=== PATIENT | male | born 2000 | race Hispanic/Latino ===

== ENCOUNTER 2023-12-20 12:07 | Emergency (ER) | payer BC ==
[2023-12-20 13:04] LABS: Absolute Eosinophils 0.5 K/uL (0-0.5); Absolute Lymphocytes (CBC) 2.7 K/uL (0.7-4.9); Absolute Monocytes 0.6 K/uL (0.1-1.3); Absolute Neutrophil 3.1 K/uL (1.8-8.0); Basophils % 0.3 % (0-1.3); Eosinophils % 7.4 % (0-4.4); Hematocrit 51.2 % (39.6-49.0); Hemoglobin 17.2 g/dL (13.6-17.9); Lymphocytes % 38.7 % (15.3-44.8); MCH 29.1 pg (27.0-35.0); MCHC 33.6 g/dL (32.0-36.0); MCV 86.7 fL (80-100); MPV 8.8 fL (7.6-11.3); Neutrophils % 44.6 % (41.7-73.7); Nucleated Red Blood Cells % 0.3 % (0-0); Platelets 226 thou/uL (152-406); RBC Red Blood Cell Count 5.91 M/uL (4.33-5.43); Red Cell Distribution Width 13.4 % (12.1-15.2)
[2023-12-20 13:22] LABS: Anion Gap 4.8 mEq/L (5.0-15.0); Potassium 3.8 mEq/L (3.5-5.1); Troponin High Sensitivity 3.4 pg/mL (<58.9)
--- NOTE | 2023-12-20 15:23 | RAD REPORT ---
EXAM DESCRIPTION: Mack Single View12/20/2023 1:42 pm CLINICAL HISTORY: CHEST PRESSURE COMPARISON: No comparisons TECHNIQUE: Portable AP view of the chest. FINDINGS: Medial right infrahilar hazy airspace opacity. No pneumothorax or effusion. The cardiomed iastinal contours are unremarkable. IMPRESSION: Mild right infrahilar hazy airspace opacity, could reflect atelectasis or early airspace disease.
--- NOTE | 2023-12-20 15:35 | ER ---
Nurse's Notes [facility] Name: Tyron Dempsey Age: 23 yrs Sex: Male : 2000 Arrival Date: 12/20/2023 Time: 12:07 Bed 14 Private MD: Diagnosis: Chest pain, unspecified Presentation: 12/19 12:12 Chief complaint: Patient states: Chest pain and left arm tingling that began yesterday. aa5 Pt states "I thought it was a pulled muscle but then my arm started tingling". 12:12 Coronavirus screen: At this time, the client does not indicate any symptoms associated aa5 with coronavirus-19. Ebola Screen: Patient denies travel to an Ebola-affected area in the 21 days before illness onset. Initial Sepsis Screen: Does the patient meet any 2 criteria? No. Patient's initial sepsis screen is negative. Does the patient have a suspected source of infection? No. Patient's initial sepsis screen is negative. Risk Assessment: Do you want to hurt yourself or someone else? Patient reports no desire to harm self or others. Onset of symptoms was December 2023. 12:12 Acuity: KAILYN 2 aa5 12:12 Method Of Arrival: Ambulatory aa5 Historical: - Allergies: 12:22 IV contrast; aa5 - PMHx: 12:22 None; aa5 - Immunization history:: Adult Immunizations unknown. - Infectious Disease History:: Denies. - Social history:: Smoking status: Patient denies any tobacco usage or history of. Screenin:47 [facility] ED Fall Risk Assessment (Adult) History of falling in the last 3 months, kc6 including since admission No falls in past 3 months (0 pts) Confusion or Disorientation No (0 pts) Intoxicated or Sedated No (0 pts) Impaired Gait No (0 pts) Mobility Assist Device Used No (0 pt) Altered Elimination No (0 pt) Score/Fall Risk Level 0 - 2 = Low Risk. Abuse screen: Denies threats or abuse. Denies injuries from another. Nutritional screening: No deficits noted. Tuberculosis screening: No symptoms or risk factors identified. Assessment: 12:30 General: Appears in no apparent distress. comfortable, well groomed, well developed, kc6 Behavior is calm, cooperative, appropriate for age. Pain: Complains of pain in anterior aspect of left upper chest and left arm Pain radiates to left arm Quality of pain is described as heavy, pressure, Pain began 1 day ago. Is continuous. Neuro: Level of Consciousness is awake, alert, obeys commands, Oriented to person, place, time, situation, Appropriate for age. Cardiovascular: Reports chest pain, Denies shortness of breath, Heart tones S1 S2 present Capillary refill < 3 seconds Rhythm is sinus rhythm with 1st degree heart block. Respiratory: Airway is patent Trachea midline Respiratory effort is even, unlabored, Respiratory pattern is regular, symmetrical. GI: No signs and/or symptoms were reported involving the gastrointestinal system. : No signs and/or symptoms were reported regarding the genitourinary system. EENT: No signs and/or symptoms were reported regarding the EENT system. Derm: No signs and/or symptoms reported regarding the dermatologic system. Skin is intact, is healthy with good turgor, Skin is pink, warm \\T\\ dry. Musculoskeletal: No signs and/or symptoms reported regarding the musculoskeletal system. Circulation, motion, and sensation intact. Capillary refill < 3 seconds, Range of motion: intact in all extremities. 14:28 Reassessment: Patient appears in no apparent distress at this time. No changes from kc6 previously documented assessment. Patient and/or family updated on plan of care and expected duration. Pain level reassessed. Patient is alert, oriented x 3, equal unlabored respirations, skin warm/dry/pink. 15:28 Reassessment: Patient appears in no apparent distress at this time. No changes from kc6 previously documented assessment. Patient and/or family updated on plan of care and expected duration. Pain level reassessed. Patient is alert, oriented x 3, equal unlabored respirations, skin warm/dry/pink. Vital Signs: 12:12 BP 144 / 70; Pulse 94; Resp 20 S; Temp 98(TE); Pulse Ox 99% on R/A; Weight 100.7 kg aa5 (R); Height 5 ft. 9 in. (R); 14:28 BP 113 / 62; Pulse 74; Resp 15 S; Pulse Ox 98% on R/A; kc6 15:28 BP 115 / 72; Pulse 79; Resp 16 S; Pulse Ox 99% on R/A; kc6 12:12 Body Mass Index 32.78 (100.70 kg, 175.26 cm) aa5 ED Course: 12:12 Patient arrived in ED. aa5 12:12 Alicia Mcclain FNP-C [facility]. kb 12:12 Bharathi Regan MD is Attending Physician. kb 12:12 Arm band placed on. aa5 12:21 Triage completed. aa5 12:28 Brittney Montgomery, RN is Primary Nurse. [facility] 12:47 Patient has correct armband on for positive identification. Placed in gown. Bed in low kc6 position. Call light in reach. Side rails up X 1. reports analyst on. Pulse ox on. NIBP on. Pillow given. 12:47 Inserted saline lock: 20 gauge in right antecubital area, using aseptic technique. kc6 Blood collected. Flushed with 10 mL NS. 13:43 Chest Single View In Process Unspecified. EDMS 15:43 No provider procedures requiring assistance completed. IV discontinued, intact, kc6 bleeding controlled, No redness/swelling at site. Pressure dressing applied. Administered Medications: No medications were administered Medication: 15:44 VIS not applicable for this client. kc6 Outcome: 15:35 Discharge ordered by . kb 15:43 Discharged to home ambulatory, kc6 15:43 Condition: good 15:43 Discharge instructions given to patient, Instructed on discharge instructions, follow up and referral plans. Demonstrated understanding of instructions, follow-up care, 15:44 Patient left the ED. kc6 Signatures: Dispatcher [employer] EDNE Alicia Mcclain FNP-C FNP-Ckb Calderon, Audri, RN RN aa5 Alexa Mancini RN RN [facility] Brittney Montgomery, RN RN nj1
--- NOTE | 2023-12-20 15:35 | EDPHYS ---
Physician Documentation [facility] Name: Tyron Dempsey Age: 23 yrs Sex: Male : 2000 Arrival Date: 12/20/2023 Time: 12:07 Bed 14 Private MD: ED Physician Bharathi Regan HPI: 12/19 12:52 This 23 yrs old Male presents to ER via Ambulatory with complaints of Chest kb Pressure - arm tingling. 12:52 Pt is a 23 year old male who presents for chest pressure and tingling to left arm that kb started yesterday. States he still had the symptoms when he woke up today so he decided to come in for evaluation. Denies shortness of breath, n/v/d. . Historical: - Allergies: 12:22 IV contrast; aa5 - PMHx: 12:22 None; aa5 - Immunization history:: Adult Immunizations unknown. - Infectious Disease History:: Denies. - Social history:: Smoking status: Patient denies any tobacco usage or history of. ROS: 12:43 Constitutional: As per HPI kb Exam: 12:43 Constitutional: This is a well developed, well nourished patient who is awake, alert, kb and in no acute distress. Head/Face: Normocephalic, atraumatic. ENT: Moist Mucous membranes Cardiovascular: Regular rate Respiratory: Respirations even and unlabored. No increased work of breathing. Talking in full sentences Abdomen/GI: Soft, non-tender. No distention Skin: Warm, dry with normal turgor. Normal color. MS/ Extremity: Pulses equal, no cyanosis. Neurovascular intact. Full, normal range of motion. Neuro: Awake and alert, GCS 15, oriented to person, place, time, and situation. Moves all extremities. Normal gait. 12:43 ECG was reviewed by the Attending Physician. Vital Signs: 12:12 BP 144 / 70; Pulse 94; Resp 20 S; Temp 98(TE); Pulse Ox 99% on R/A; Weight 100.7 kg aa5 (R); Height 5 ft. 9 in. (R); 14:28 BP 113 / 62; Pulse 74; Resp 15 S; Pulse Ox 98% on R/A; kc6 15:28 BP 115 / 72; Pulse 79; Resp 16 S; Pulse Ox 99% on R/A; kc6 12:12 Body Mass Index 32.78 (100.70 kg, 175.26 cm) aa5 MDM: 12:12 Patient medically screened. kb 12:52 Data reviewed: vital signs, nurses notes. kb 15:33 Differential diagnosis: abnormal ekg, PA, musculoskeletal pain, PE, myalgia. I kb considered the following discharge prescriptions or medication management in the emergency department antibiotics considered but pt has no fever, chills, cough, congestion, shortness of breath to indicate infectious process. Test considered but Not performed: CT: CT PE considered but PERC negative. Scoring Tools PERC Rule for PE Age >/= 50 No HR >/= 100 No O2 Sat Room Air < 95% No Unilateral leg swelling No Hemoptysis No Recent surgery or trauma </= 4 wks ago requiring treatment with general anesthesia No (0 pt) Prior PE or DVT No Hormone use (Oral contraceptives, hormone replacement or estrogenic hormones use in males or female patients No. Counseling: I had a detailed discussion with the patient and/or guardian regarding the historical points, exam findings, and any diagnostic results supporting the discharge/admit diagnosis, lab results, radiology results, the need for outpatient follow up, a family practitioner, to return to the emergency department if symptoms worsen or persist or if there are any questions or concerns that arise at home. 12/19 12:52 Order name: Basic Metabolic Panel; Complete Time: 13:23 EDAK 12/19 12:52 Order name: Troponin High Sensitivity; Complete Time: 13:23 EDAK 12/19 12:52 Order name: CBC with Automated Diff; Complete Time: 13:11 EDAK 12/19 13:01 Order name: Chest Single View; Complete Time: 15:29 EDAK 12/19 12:20 Order name: EKG; Complete Time: 15:52 kb 12/19 12:20 Order name: Cardiac monitoring; Complete Time: 12:47 kb 12/19 12:20 Order name: EKG - Nurse/Tech; Complete Time: 12:47 kb 12/19 12:20 Order name: IV Saline Lock; Complete Time: 12:47 kb 12/19 12:20 Order name: Labs collected and sent; Complete Time: 12:47 kb 12/19 12:20 Order name: O2 Per Protocol; Complete Time: 12:47 kb 12/19 12:20 Order name: O2 Sat Monitoring; Complete Time: 12:47 kb EC:43 Rate is 75 beats/min. Rhythm is regular. QRS [place] is Normal. WA interval is prolonged kb at 226 msec. QRS interval is normal at 100 msec. QT interval is normal at 397 msec. Administered Medications: No medications were administered Disposition Summary: 12/20/23 15:35 Discharge Ordered Notes: Location: Home kb Condition: Stable kb Diagnosis - Chest pain, unspecified kb Followup: kb - With: Emergency Department - When: As needed - Reason: Worsening of condition Followup: kb - With: Private Physician - When: 2 - 3 days - Reason: Recheck today's complaints, Continuance of care, Re-evaluation by your physician Discharge Instructions: - Discharge Summary Sheet kb - Nonspecific Chest Pain, Adult, [id number] kb Forms: - Medication Reconciliation Form kb - Antibiotic Education kb - Prescription Opioid Use kb - Patient Portal Instructions kb - Leadership Thank You Letter kb Addendum: 12/21/2023 17:20 I was immediately available for consultation during this patient's visit. I did not e c2 personally see the patient or discuss the patient with the BYRON. . Signatures: Dispatcher [employer] Alicia Pritchard, TIMBER MANAGEMENT SPECIALIST-C TIMBER MANAGEMENT SPECIALIST-Marisela Dick, RN RN aa5 Bharathi Regan MD MD ec2
[2023-12-20 17:33] VITALS: TEMP 98
[2023-12-20 17:35] VITALS: BP 115/72; O2SAT 99
--- NOTE | 2023-12-21 16:59 | EKG ---
Test Date: 2023-12-20 Test Time: 12:36:52 C.O.D. Clerk: LOLLY MEASUREMENT RESULTS: Intervals: Rate: 75 SC: 226 QRSD: 100 QT: 356 QTc: 397 [place]: P: 48 SC: 226 QRS: 87 T: 47 INTERPRETIVE STATEMENTS: Sinus rhythm with 1st degree AV block Nonspecific ST abnormality Abnormal ECG No previous ECG available for comparison Electronically Signed On 12-21-23 16:57:10 CDT by John Burgos
== END 2023-12-20 15:44 | disposition home or self-care (01) ==
LOC: ER 12:07
DX: R07.9 Chest pain, unspecified (principal)
CPT/HCPCS: 36415; 71045; 80048; 84484; 85025; 93005; 99284

== ENCOUNTER 2025-03-08 02:28 | Emergency (ER) | payer SELFPAY ==
[2025-03-08] MEDS ORDERED: NA CHLORIDE 0.9% 1,000 ML ONE (02:59)
--- NOTE | 2025-03-08 08:14 | ER ---
Nurse's Notes [facility] Name: Tyron Dempsey Age: 24 yrs Sex: Male : 2000 Arrival Date: 03/08/2025 Time: 02:28 Bed 15 Private MD: Diagnosis: Acute upper abdominal pain, acute gastritis Presentation: 03/08 02:47 Chief complaint: Patient states: I woke up about an hour ago with severe stomach kd3 cramping and nausea. I never threw up but now it just feels like i have tightness in my stomach and i do not feel good. I also have not had any diarrhea. Coronavirus screen: Vaccine status: Patient reports receiving the 2nd dose of the covid vaccine. Ebola Screen: No symptoms or risks identified at this time. Initial Sepsis Screen: Does the patient meet any 2 criteria? No. Patient's initial sepsis screen is negative. Does the patient have a suspected source of infection? No. Patient's initial sepsis screen is negative. Risk Assessment: Do you want to hurt yourself or someone else? Patient reports no desire to harm self or others. Onset of symptoms was March 08, 2025. 02:47 Method Of Arrival: Ambulatory kd3 02:47 Acuity: KAILYN 3 kd3 Triage Assessment: 02:49 General: Appears in no apparent distress. Behavior is calm, cooperative. Pain: kd3 Complains of pain in abdomen. GI: Abdomen is non-distended. Historical: - Allergies: 02:49 IV contrast; kd3 - PMHx: 02:49 Asthma; kd3 - Immunization history:: Adult Immunizations up to date. - Infectious Disease History:: Denies. - Social history:: Smoking status: Patient denies any tobacco usage or history of. - Family history:: not pertinent. Screenin:54 [facility] ED Fall Risk Assessment (Adult) History of falling in the last 3 months, nh2 including since admission No falls in past 3 months (0 pts) Confusion or Disorientation No (0 pts) Intoxicated or Sedated No (0 pts) Impaired Gait No (0 pts) Mobility Assist Device Used No (0 pt) Altered Elimination No (0 pt) Score/Fall Risk Level 0 - 2 = Low Risk Oriented to surroundings, Maintained a safe environment, Educated pt \T\ family on fall prevention, incl call for assistance when getting out of bed, Assessed \T\ reinforced patient's understanding of fall precautions. Abuse screen: Denies threats or abuse. Denies injuries from another. Nutritional screening: No deficits noted. Tuberculosis screening: No symptoms or risk factors identified. Assessment: 02:54 General: Appears uncomfortable, Behavior is cooperative, appropriate for age, restless. nh2 Pain: Complains of pain in epigastric region Pain does not radiate. Pain currently is 3 out of 10 on a pain scale. at worst was 8 out of 10 on a pain scale. Quality of pain is described as aching, Pain began this morning at 1000. Neuro: Level of Consciousness is awake, alert, obeys commands, Oriented to person, place, time, situation, Appropriate for age [place] are equal bilaterally Denies dizziness, headache. Cardiovascular: Denies chest pain, Patient's skin is warm and dry. Respiratory: Respiratory effort is even, unlabored. GI: Bowel sounds present X 4 quads. Abd is soft and non tender X 4 quads. Reports cramping, nausea, Patient currently denies diarrhea. : No signs and/or symptoms were reported regarding the genitourinary system. Denies burning with urination. EENT: No signs and/or symptoms were reported regarding the EENT system. Derm: Skin is pink, warm \T\ dry. Musculoskeletal: Circulation, motion, and sensation intact. Range of motion: intact in all extremities. 03:18 Reassessment: pt transferred to CT via wheelchair. nh2 03:35 Reassessment: pt back from CT. reconnected to monitor. denies needs or concerns, call nh2 light placed within reach. 04:00 Reassessment: Patient and/or family updated on plan of care and expected duration. Pain nh2 level reassessed. Patient is alert, oriented x 3, equal unlabored respirations, skin warm/dry/pink. 05:00 Reassessment: Patient and/or family updated on plan of care and expected duration. Pain nh2 level reassessed. Patient is alert, oriented x 3, equal unlabored respirations, skin warm/dry/pink. Patient states feeling better. 06:00 Reassessment: Patient and/or family updated on plan of care and expected duration. Pain nh2 level reassessed. Patient is alert, oriented x 3, equal unlabored respirations, skin warm/dry/pink. Patient states symptoms have improved. Vital Signs: 02:47 BP 121 / 65; Pulse 77; Resp 16; Temp 98.4(O); Pulse Ox 99% on R/A; Weight 72.57 kg; kd3 Height 5 ft. 9 in. ; Pain 3/10; 03:16 BP 108 / 75; Pulse 79; Resp 18; Pulse Ox 100% on R/A; nh2 04:15 BP 110 / 54; Pulse 80; Resp 16; Pulse Ox 100% on R/A; nh2 04:31 BP 104 / 60; Pulse 75; Resp 17; Pulse Ox 100% on R/A; nh2 05:27 BP 110 / 57; Pulse 80; Resp 19; Pulse Ox 100% on R/A; nh2 06:01 BP 105 / 61; Pulse 74; Resp 17; Pulse Ox 98% on R/A; nh2 02:47 Body Mass Index 23.63 (72.57 kg, 175.26 cm) kd3 02:47 Pain Scale: Adult kd3 Zain Coma Score: 03:12 Eye Response: spontaneous(4). Motor Response: obeys commands(6). Verbal Response: sp4 oriented(5). Total: 15. ED Course: 02:37 Patient arrived in ED. gm2 02:47 Violet Ace, RN is Primary Nurse. kd3 02:49 Triage completed. kd3 02:49 Arm band placed on right wrist. kd3 02:54 Patient has correct armband on for positive identification. Bed in low position. Call nh2 light in reach. Side rails up X 1. Provided Education on: using call light for assistance. 02:54 No provider procedures requiring assistance completed. Inserted saline lock: 20 gauge nh2 in right antecubital area, using aseptic technique. Blood collected. Flushed with 10 mL NS. 02:55 Kal Hamilton MD is Attending Physician. sp4 02:58 Door closed. Noise minimized. Warm blanket given. Pillow given. nh2 06:20 IV discontinued, intact, bleeding controlled, No redness/swelling at site. Pressure nh2 dressing applied. Administered Medications: 03:15 Drug: NS 0.9% IV 1000 ml IV at 1000 ml once; to be given as a bolus over 60 minutes nh2 Route: IV; Rate: 1000 ml; Site: right antecubital; 04:10 Follow up: IV Status: Completed infusion; IV Intake: 1000ml nh2 Medication: 02:54 VIS not applicable for this client. nh2 Intake: 04:10 IV: 1000ml; Total: 1000ml. nh2 Outcome: 06:13 Discharge ordered by . micaela 06:20 Discharged to home ambulatory, nh2 06:20 Condition: stable 06:20 Discharge instructions given to patient, Instructed on discharge instructions, follow up and referral plans. Demonstrated understanding of instructions, follow-up care, 06:29 Patient left the ED. nh2 Signatures: Violet Ace, RN RN kd3 Kal Hamilton MD MD sp4 Pricila Simpson 2 Vance Peralta Jr, RN RN nh2
--- NOTE | 2025-03-08 08:14 | EDPHYS ---
Physician Documentation [facility] Name: Tyron Dempsey Age: 24 yrs Sex: Male : 2000 Arrival Date: 03/08/2025 Time: 02:28 Bed 15 Private MD: ED Physician Kal Hamilton HPI: 03/08 02:55 This 24 yrs old Male presents to ER via Ambulatory with complaints of sp4 Abdominal Pain, Abdominal Cramping, Nausea. 03:12 24-year-old male presents with acute onset upper abdominal pain associated with nausea sp4 and diaphoresis. Initially 7 out of 10 on a scale. On presentation to review the ER pain is 3 out of 10. Denied any previous medical problems or abdominal surgery. Historical: - Allergies: 02:49 IV contrast; kd3 - PMHx: 02:49 Asthma; kd3 - Immunization history:: Adult Immunizations up to date. - Infectious Disease History:: Denies. - Social history:: Smoking status: Patient denies any tobacco usage or history of. - Family history:: not pertinent. ROS: 03:12 Constitutional: Negative for fever, chills, and weight loss, positive upper abdominal sp4 pain positive diaphoresis positive nausea 03:12 All other systems are negative, Exam: 03:12 Constitutional: This is a well developed, well nourished patient who is awake, alert, sp4 and in no acute distress. Head/Face: Normocephalic, atraumatic. Eyes: Pupils equal round and reactive to light, extra-ocular motions intact. Lids and lashes normal. Conjunctiva and sclera are not injected. Cornea within normal limits. Periorbital areas with no swelling, redness, or edema. ENT: Nares patent. No nasal discharge, no septal abnormalities noted. Tympanic membranes are normal and external auditory canals are clear. Oropharynx with no redness, swelling, or masses, exudates, or evidence of obstruction, uvula midline. Mucous membranes moist. Neck: Trachea midline, no thyromegaly or masses palpated, and no cervical lymphadenopathy. Supple, full range of motion without nuchal rigidity, or vertebral point tenderness. Chest/axilla: Normal chest wall appearance and motion. Nontender with no deformity. No lesions are appreciated. Cardiovascular: Regular rate and rhythm with a normal S1 and S2. No gallops, murmurs, or rubs. No pulse deficits. Respiratory: Lungs have equal breath sounds bilaterally, clear to auscultation and percussion. No rales, rhonchi or wheezes noted. No increased work of breathing, no retractions or nasal flaring. Abdomen/GI: Soft, with normal bowel sounds. No distension or tympany. No guarding or rebound. No evidence of tenderness throughout. Back: No spinal tenderness. No costovertebral tenderness. Skin: Warm, dry with normal turgor. Normal color with no rashes, no lesions, and no evidence of cellulitis. MS/ Extremity: Pulses equal, no cyanosis. Neurovascular intact. Full, normal range of motion. Neuro: Awake and alert, GCS 15, oriented to person, place, time, and situation. Cranial nerves II-XII grossly intact. Motor strength 5/5 in all extremities. Sensory grossly intact. Psych: Awake, alert, with orientation to person, place and time. Behavior, mood, and affect are within normal limits 05:59 ECG was reviewed by the Attending Physician. EKG at 0 530 normal sinus rhythm, rate sp4 75, normal EKG Vital Signs: 02:47 BP 121 / 65; Pulse 77; Resp 16; Temp 98.4(O); Pulse Ox 99% on R/A; Weight 72.57 kg; kd3 Height 5 ft. 9 in. ; Pain 3/10; 03:16 BP 108 / 75; Pulse 79; Resp 18; Pulse Ox 100% on R/A; nh2 04:15 BP 110 / 54; Pulse 80; Resp 16; Pulse Ox 100% on R/A; nh2 04:31 BP 104 / 60; Pulse 75; Resp 17; Pulse Ox 100% on R/A; nh2 05:27 BP 110 / 57; Pulse 80; Resp 19; Pulse Ox 100% on R/A; nh2 06:01 BP 105 / 61; Pulse 74; Resp 17; Pulse Ox 98% on R/A; nh2 02:47 Body Mass Index 23.63 (72.57 kg, 175.26 cm) kd3 02:47 Pain Scale: Adult kd3 [place] Coma Score: 03:12 Eye Response: spontaneous(4). Motor Response: obeys commands(6). Verbal Response: sp4 oriented(5). Total: 15. MDM: 03:04 Medical Screening Exam initiated sp4 04:09 Differential diagnosis: Cholecystitis, pancreatitis, gastritis. Data reviewed: vital sp4 signs, nurses notes. ED course: Urinalysis today unremarkable, chemistry panel within normal limits, liver function test within normal limits. ED course: Currently awaiting CT report.. 06:00 ED course: Laboratory work reveals blood sugar 139, potassium 3.2, otherwise normal sp4 CMP, normal CBC, normal EKG. 06:11 Consideration of Admission/Observation Escalation of care including sp4 admission/observation considered. ED course: CT abdomen pelvis is normal. Patient stable for discharge home. . 06:17 ED course: There was a circular small object noted in the patient's stomach which was sp4 confirmed to be a circular pill in the radiology reading. 03/08 02:56 Order name: IV Saline Lock; Complete Time: 58 sp4 03/08 02:56 Order name: Labs collected and sent; Complete Time: :58 sp4 EC:30 Rate is 75 beats/min. Rhythm is regular, Normal Sinus Rhythm. QRS [place] is Normal. DC sp4 interval is normal. QRS interval is normal. QT interval is normal. No Q waves. T waves are Normal. No ST changes noted. Clinical impression: No evidence of ischemia. Interpreted by me. Reviewed by me. Administered Medications: 03:15 Drug: NS 0.9% IV 1000 ml IV at 1000 ml once; to be given as a bolus over 60 minutes nh2 Route: IV; Rate: 1000 ml; Site: right antecubital; 04:10 Follow up: IV Status: Completed infusion; IV Intake: 1000ml nh2 Disposition Summary: 03/08/25 06:13 Discharge Ordered Notes: Consider Clear liquid diet for 12 hours Location: Home sp4 Problem: new sp4 Symptoms: have improved sp4 Condition: Stable sp4 Diagnosis - Acute upper abdominal pain, acute gastritis sp4 Followup: sp4 - With: Private Physician - When: 7 - 10 days - Reason: Recheck today's complaints Discharge Instructions: - Discharge Summary Sheet sp4 - Gastritis, Adult, [id number] sp4 Forms: - Patient Portal Instructions sp4 Signatures: Violet Ace RN RN kd3 Kal Hamilton MD MD sp4 Vance Peralta Jr RN RN nh2
--- NOTE | 2025-03-08 08:42 | RAD REPORT ---
Procedure description: CT ABDOMEN PELVIS WITHOUT IV CONTRAST CLINICAL INDICATION: Abdomen/Pelvis WO Contrast. No actual history is available. TECHNIQUE: Axial imaging obtained through the abdomen and pelvis. Sagittal and coronal reconstruction s obtained. CONTRAST: None COMPARISON: None FINDINGS: CT abdomen/pelvis: The lung bases are clear consolidation. No pleural or pericardial effusions and th e heart size is normal. The gallbladder is contracted. The noncontrast appearance of the liver, spleen, both adrenal glands, pancreas and kidneys are normal. The aorta is normal in size and appearance. No free fluid or free air. The appendix is normal. No bowel distention or inflammation. Mild constipation not diffusely present. There is a pill within the distal stomach The prostate gland is not significantly enlarged. The bladder has a normal appearance. IMPRESSION: 1: No acute intra-abdominal or pelvic finding. Electronically signed by: Antonio Wang MD 03/08/2025 05:03 AM CDT RP Due to temporary technical issues with the PACS/AnyCloud reporting system, reports are being neil d by the in-house radiologist without review as a courtesy to ensure prompt reporting the interpreting radiologist is fully responsible for the content of the report. Transcribed Date/Time: 03/08/2025 8:42 AM
[2025-03-08 09:10] LABS: Absolute Lymphocytes (CBC) 1.1 K/uL (0.7-4.9); Hematocrit 47.4 % (39.6-49.0); Hemoglobin 16.1 g/dL (13.6-17.9); MCH 29.7 pg (27.0-35.0); MCHC 34.0 g/dL (32.0-36.0); MCV 87.5 fL (80-100); MPV 8.3 fL (7.6-11.3); Nucleated RBC Absolute Count 0.0 (0-0); Nucleated Red Blood Cells % 0.1 % (0-0); RBC Red Blood Cell Count 5.42 M/uL (4.33-5.43); White Blood Count 6.70 thou/uL (4.3-10.9)
[2025-03-08 09:39] LABS: Urine Microscopic Reflex YN NO UMIC
[2025-03-08 09:59] LABS: ALT/SGPT 60.0 U/L (16-61); AST/SGOT 63.0 U/L (15-37); Albumin 3.7 g/dL (3.4-5.0); Albumin/Globulin Ratio 1.2 (1.1-1.8); Alkaline Phosphatase 57.0 U/L (45-117); Anion Gap 8.2 mEq/L (5.0-15.0); BUN Blood Urea Nitrogen 23.0 mg/dL (7-18); Globulin 3.0 g/dL (2.3-3.5); Glucose Level 139.0 mg/dL (74-106); Lipase 19.0 U/L (13-75); Potassium 3.2 mEq/L (3.5-5.1)
[2025-03-08 10:26] VITALS: TEMP 98.4
[2025-03-08 10:32] VITALS: BP 105/61; O2SAT 98
== END 2025-03-08 06:29 | disposition home or self-care (01) ==
LOC: ER 02:28
DX: K29.00 Acute gastritis without bleeding (principal); R10.10 Upper abdominal pain, unspecified; R11.0 Nausea; J45.909 Unspecified asthma, uncomplicated
CPT/HCPCS: 36415; 74176; 80053; 81003; 83690; 85025; 93005; 96360; 99284; J7030